=== PATIENT | female | born 1975 | race Asian ===

== ENCOUNTER 2022-12-12 00:21 | Emergency (ER) | payer OTHER ==
[~2022-12-12] VITALS: Ht 154.9 cm; Wt 55.3 kg
[2022-12-12] MEDS ORDERED: ALBUTEROL/IPRATROPIUM 3 ML NEB ONE ×2 (00:49→01:06)
[2022-12-12] MEDS ORDERED: PREDNISONE 20 MG TAB PO ONE (01:00)
[2022-12-12] MEDS ORDERED: ALBUTEROL/IPRATROPIUM 3 ML NEB NEB ONE ×2 (01:00)
[2022-12-12] MEDS ORDERED: PREDNISONE 20 MG TAB ONE (01:06)
[2022-12-12] MEDS ORDERED: GUAIFEN-CODEINE5 ML PO (01:35)
[2022-12-12] MEDS ORDERED: LEVALBUTEROL TA15 GM INH (01:53)
[2022-12-12] MEDS ORDERED: PREDNISONE20 MG PO (01:54)
== END 2022-12-12 02:29 | disposition home or self-care (01) ==
LOC: FSED 00:42
DX: R05.9 Cough, unspecified (principal); J06.9 Acute upper respiratory infection, unspecified; J45.901 Unspecified asthma with (acute) exacerbation
CPT/HCPCS: 71046; 99283; J7512